=== PATIENT | female | born 1950 | race Caucasian/White ===

== ENCOUNTER 2017-12-06 12:57 | Inpatient (IN) ==
[2017-12-06] MEDS ORDERED: *HR* Ticagrelor 90 MG TABLET ONE (13:02)
[2017-12-06] MEDS ORDERED: 0.9 % Sodium Chloride 1,000 ML ONE ×4 (13:03→14:10)
[2017-12-06] MEDS ORDERED: Aspirin 325 MG TABLET PO ONE (13:03)
[2017-12-06] MEDS ORDERED: *HR* Heparin 10,000 UNIT/10 ML VIAL ONE (13:03)
[2017-12-06] MEDS ORDERED: Aspirin 81 MG TAB.CHEW ONE ×2 (13:03→14:14)
[2017-12-06] MEDS ORDERED: *HR* Heparin 5,000 UNIT/ML VIAL ONE (13:03)
[2017-12-06] MEDS ORDERED: ISOVUE-370 200 ML INFUS..BTL IV ONE (13:03)
[2017-12-06] MEDS ORDERED: Heparin 1,000 UNITS/500 mL 500 ML ONE (13:03)
[2017-12-06] MEDS ORDERED: Nitroglycerin 1,000 MCG/10 ML VIAL IV ONE (13:04)
[2017-12-06] MEDS ORDERED: *HR* Ticagrelor 90 MG TABLET PO ONE ×2 (13:08→18:00)
[2017-12-06] MEDS ORDERED: Aspirin 81 MG TAB.CHEW PO STA (13:09)
[2017-12-06] MEDS ORDERED: *HR* Heparin 5,000 UNIT/ML VIAL IVP ONE (13:10)
[2017-12-06] MEDS ORDERED: *HR* Heparin 5,000 UNIT/ML VIAL IVP PRN ×2 (13:10)
[2017-12-06] MEDS ORDERED: Heparin 25,000 UNIT/500 ML D5W 25,000 UNIT/500 ML BAG IVC SCH (13:15)
[2017-12-06] MEDS ORDERED: Ondansetron 4 MG/2 ML VIAL ONE (13:20)
[2017-12-06] MEDS ORDERED: *HR* EPINEPHrine 1 MG/ML AMPUL ONE (13:20)
[2017-12-06] MEDS ORDERED: 0.9 % Sodium Chloride 250 ML ONE (13:20)
--- NOTE | 2017-12-06 13:28 | Emergency Department Note ---
Disposition Clinical Impression: STEMI (ST elevation myocardial infarction) Qualifiers: Involved coronary artery: unspecified coronary artery Qualified Code(s): I21.3 - ST elevation (STEMI) myocardial infarction of unspecified site Disposition: Admitted As Inpatient Condition: Critical Chest Pain HPI - General Chief Complaint: ED Chest Pain Stated Complaint: AFIB Time Seen by Provider: 12/06/17 12:59 Source: family Limitations: no limitations Vital Signs Reviewed: Yes Nursing Notes Reviewed: Yes - History of Present Illness HPI Narrative: Patient presents to the emergency department for evaluation of chest pain. Chest pain started prior to arrival. Called squad. Brought in by EMS. EMS arrived with concern for EKG changes. Poor baseline and transmitted EKG. Upon arrival the patient has bradycardia in the mid 50s. Systolic blood pressure of 70. Patient complaining of 10 out of 10 chest pain feels like prior [place]. Last stent placement was 2013. Patient has a history of hypertension as well as smoking. She states she has mild COPD. Not requiring home oxygen. Patient's history is otherwise limited secondary to her pain, discomfort, severity of disease. EKG at bedside shows ST elevations in leads 3 and aVF. Depressions in 1 and aVL. Right-sided EKG shows continuation of elevations throughout the right- sided precordial leads. Upon initial EKG evaluation a STEMI alert was called. Court Magistrate is in house and is on the way to take the patient. Dr. Pelayo did call and I discussed the case with him. Agrees with aspirin, George, heparin, dopamine. After further evaluation of the patient within the child day for systolic blood pressure dropped to systolic 60. 2 L of fluids have been given. Epinephrine will be started if patient does not respond to dopamine increased to 20. Catheter team is at bedside. Patient has responded to fluid boluses as well as dopamine. Systolic blood pressure greater than 902 readings. Patient is been taken to Court Magistrate for further evaluation and management Severity scale (1-10): 10 - Related Data Allergies Allergy/AdvReac Type Severity Reaction Status Date / Time Penicillins AdvReac Hives Verified 03/10/16 10:11 Sulfa (Sulfonamide AdvReac Hives Verified 03/10/16 10:11 Antibiotics) Review of Systems: As Per HPI Limitations: ROS unobtainable due to patients medical condition Constitutional: Reports: other (Diaphoresis). Denies: fever, chills Cardiovascular: Reports: chest pain Respiratory: Reports: dyspnea Gastrointestinal: Reports: nausea, vomiting. Denies: abdominal pain Chest Pain PMH - Past Medical History Medical history: Reports: COPD Psychiatric history: Reports: no psych history - Social History Smoking Status: Current every day smoker Alcohol use: Reports: none Drug use: Reports: none Physical Exam - General Limitations: other (Limitations secondary to distress from chest pain and diaphoresis) General appearance: alert, lethargic - Head Head exam: atraumatic, normocephalic - Eye Eye exam: Present: normal appearance - ENT ENT exam: normal exam, normal oropharynx - Neck Neck exam: Present: normal inspection - Chest Chest inspection: Present: normal inspection, symmetric chest wall rise - Respiratory Respiratory exam: Present: normal lung sounds bilaterally, respiratory distress (Mild) - Cardiovascular Cardiovascular exam: Present: normal rhythm, bradycardia - Abdominal Exam Abdominal exam: Present: soft, Non-Tender - Extremities Exam Extremities exam: Present: normal inspection. Absent: tenderness - Neurological Exam Neurological exam: Present: alert, oriented X3 - Psychiatric Psychiatric exam: Present: anxious - Skin Skin exam: Present: warm, dry Course - Consultations Consultation #1: Discussed with Dr. Pelayo. Please see history of present illness for further details of this discussion. Patient accepted for catheter lab intervention. Vital Signs Temperature 97.8 F 12/06/17 13:00 Pulse Rate 51 12/06/17 13:00 Respiratory Rate 31 12/06/17 13:00 Blood Pressure 89/59 12/06/17 13:00 O2 Sat by Pulse Oximetry 94 12/06/17 13:00 Temperature 97.8 F 12/06/17 13:00 Pulse Rate 72 12/06/17 13:20 Respiratory Rate 15 12/06/17 13:22 Blood Pressure 103/60 12/06/17 13:22 O2 Sat by Pulse Oximetry 92 12/06/17 13:20 Oxygen Delivery Oxygen Delivery Room Air Chest Pain - Lab Data Result diagrams: 12/06/17 13:03 Lab Results 12/06/17 Range/Units 13:03 WBC 15.3 H (4.3-11.1) K/mcL RBC 4.53 (3.82-4.97) M/mcL Hgb 14.2 (11.5-15.4) g/dL Hct 42.5 (35.3-44.9) % MCV 93.8 (83.0-100.0) fL MCH 31.3 (28.0-33.3) pg MCHC 33.4 (31.6-35.5) g/dL RDW 13.6 (11.5-14.5) % Plt Count 282 (140-400) K/mcL MPV 10.4 (9.4-12.4) fL Immature Gran % 0.5 (0-4) % Seg Neutrophils % 61.0 % Lymphocytes % 27.7 % Monocytes % 8.3 % Eosinophils % 2.2 % Basophils % 0.3 % Neutrophils # 9.3 H (1.6-8.9) K/mcL Lymphocytes # 4.2 (0.6-4.6) K/mcL Monocytes # 1.3 (0.0-1.3) K/mcL Eosinophils # 0.3 (0.0-0.6) K/mcL Basophils # 0.1 (0.0-0.2) K/mcL
[2017-12-06 13:31] LABS: Basophils # 0.1 K/mcL (0.0-0.2); Basophils % 0.3 %; Eosinophils # 0.3 K/mcL (0.0-0.6); Eosinophils % 2.2 %; Hematocrit 42.5 % (35.3-44.9); Hemoglobin 14.2 g/dL (11.5-15.4); Immature Granulocytes % 0.5 % (0-4); Lymphocytes # 4.2 K/mcL (0.6-4.6); Lymphocytes % 27.7 %; Mean Corpuscular HGB Conc 33.4 g/dL (31.6-35.5); Mean Corpuscular Hemoglobin 31.3 pg (28.0-33.3); Mean Corpuscular Volume 93.8 fL (83.0-100.0); Mean Platelet Volume 10.4 fL (9.4-12.4); Monocytes # 1.3 K/mcL (0.0-1.3); Monocytes % 8.3 %; Neutrophils # 9.3 K/mcL (1.6-8.9); Platelet Count 282 K/mcL (140-400); Red Blood Count 4.53 M/mcL (3.82-4.97); Red Cell Distribution Width 13.6 % (11.5-14.5)
[2017-12-06] MEDS ORDERED: Ondansetron 4 MG/2 ML VIAL IVP PRN (13:31)
--- NOTE | 2017-12-06 13:31 | Pre-Sedation Evaluation ---
Pre-sedation evaluation - Pre-sedation checklist Date of procedure: 12/06/17 Procedure: [facility] Recent Vitals: Last Vital Signs Temp 97.8 F 12/06/17 13:00 Pulse 72 12/06/17 13:20 Resp 15 12/06/17 13:22 BP 103/60 12/06/17 13:22 Pulse Ox 92 12/06/17 13:20 H&P (including ROS) documented in medical record: Yes Previous reaction to sedatives/anesthetics: No Dietary Status: unknown Airway Assessment: Patient can open mouth completely, TMJ function normal ASA Classification *see protocol: CLASS II-Mild systemic disease, E-EMERGENCY- Add to any of the above to indicate emergent Plan of Care: Pt appropriate candidate for procedure/moderate/conscious sedation , Risks/benefits of procedure/sedation discussed w/ patient/family, If not NPO; Risk of intake outweiged by necessity to perform procedure Cardiac Registry (Cardio Only) - Functional Capacity Functional Capacity: Unknown - Clincal Frailty Scale Clinical Frailty Scale: Managing Well
[2017-12-06] MEDS ORDERED: *HR* FentaNYL (PF) 100 MCG/2 ML VIAL ONE (13:39)
[2017-12-06] MEDS ORDERED: *HR* Midazolam HCl 2 MG/2 ML VIAL ONE ×2 (13:39→13:51)
[2017-12-06 13:40] LABS: Heparin anti-factor XA UFH 0.04 IU/mL (0.30-0.70); INR 1.1; Prothrombin Time 11.9 Seconds (9.4-12.1)
[2017-12-06 13:42] LABS: Activated Partial Thrombo Time 24.2 Seconds (26.0-36.0)
[2017-12-06] MEDS ORDERED: Tirofiban 12.5 MG/250ML 12.5 MG/250 ML BAG IVC SCH (13:45)
[2017-12-06 13:52] LABS: BUN/Creatinine Ratio 30 (6-26); Blood Urea Nitrogen 31 mg/dL (8-23); Calcium 7.6 mg/dL (8.6-10.3); Carbon Dioxide 26 mEq/L (23-29); Chloride 112 mEq/L (98-107); Glucose 148 mg/dL (70-105); Osmolality,Calculated 305 (280-300); Potassium 3.5 mEq/L (3.5-5.1); Sodium 143 mEq/L (136-145); Troponin I < 0.03 ng/mL (< 0.04); eGFR For Non-African Americans 52 (> 60)
--- NOTE | 2017-12-06 14:55 | Invasive Diagnostic Lab Proc ---
Name: Iwona Bee Date of Study: 12/06/2017 Date: 1950 Ht: 63.0in Medical Record#: [id number] Age: 67 Wt: 138.89lb Gender: Female BSA: 1.66 Order #: [id number] BMI: 24.61 Physicians Procedure Physician: Hunter Pelayo MD, [facility] Referring MD: Referring MD: Staff Name Position Time In Beau Calhoun RN Slime Plant Operator 01:19 PM Jessi Dao RT (R) Scrub 01:19 PM Francisco Hinds RT (R) Monitor 01:19 PM Indications Indication STEMI Procedures Performed Procedure PRQ CARD REVASC MT 1 VSL Pre-Procedure Checklist Informed consent is complete signed and on chart. H&P is on chart. ID band is on and ID verified with patient. Patient NPO for procedure The procedure was described for the patient and questions were answered. Blood Pressure: 103/60 ECG is on chart. Rhythm: NSR w/ST elevation Plan of Care Patient will tolerate the procedure without complications. Adequate level of comfort will be maintained. Hemodynamics will remain stable Patient will recover from procedure without complications. Respiratory function will be maintained. Cardiac rhythm will remain stable. Patient temperature will be maintained. Patient and/or family have verbalized understanding of the procedure. Patient Education Chief Complaint/Reason for Test: Cardiac Cath Developmental Category: Geriatric (65+ years) Developmentally Appropriate for Age: Yes Learning Barriers: None Education Needs: Procedure Education Method: Verbal Information Taught: Cardiac Cath Educational Evaluation: Unable to retain information. Needs further instruction Intravenous Access Time IV Size Location DC'd Fluid/Drip Rate Units RN 01:27 PM 18g 1 1/4" Patent On Arrival Lt Antecubital 0.9NaCl 25 ml/hr Beau Calhoun RN 01:27 PM 20g 1 1/4" Patent On Arrival Rt Antecubital Allergies Penicillins Sulfa (Sulfonamide Antibiotics) PCN SULFA (sulfonamide) Vital Signs Time BP (mmHg) HR (bpm) O2 Sat. RR (bpm) LOC 01:26 PM 103 / 60 72 92 % 15 4 = Oriented but drowsy 01:26 PM / % 4 = Oriented but drowsy 01:32 PM 152 / 73 81 91 % 12 01:37 PM 121 / 65 78 97 % 22 01:42 PM 129 / 72 81 100 % 21 01:48 PM 179 / 96 107 97 % 15 01:52 PM 83 / 54 100 98 % 17 01:53 PM 131 / 76 127 97 % 15 01:58 PM 142 / 86 96 99 % 22 02:03 PM 148 / 70 105 98 % 18 02:08 PM 120 / 64 102 100 % 15 02:13 PM 103 / 56 104 98 % 15 02:19 PM 100 / 44 91 97 % 16 02:23 PM 99 / 59 90 100 % 16 Procedural Medications Time Medication Dose Units Method Given By 01:32 PM Oxygen 6 L/min nasal cannula Beau Calhoun RN 01:37 PM Dopamine 20 ml/hr Intravenous 01:38 PM Lidocaine 2% 13 ml Subcutaneous Hunter Pelayo MD, FACC 01:43 PM Versed 2 mg Intravenous Beau Calhoun RN 01:43 PM Fentanyl 25 mcg Intravenous Beau Calhoun RN 01:44 PM Aggrastat Bolus: 33 ml Intravenous Beau Calhoun RN 01:45 PM Aggrastat 12.5mg/250ml 12 ml Intravenous Beau Calhoun RN 01:52 PM Versed 1 mg Intravenous Beau Calhoun RN 01:52 PM Fentanyl 25 mcg Intravenous Beau Calhoun RN 01:58 PM Dopamine 15 mg Intravenous Beau Calhoun RN 02:02 PM Dopamine 10 mg/kg/min Intravenous Beau Calhoun RN 02:06 PM Dopamine 5 mg/kg/min Intravenous Beau Calhoun RN 02:09 PM Nitroglycerin 200 mcg Intracoronary Hunter Pelayo MD 02:22 PM Aspirin (325mg) 81 mg Orally Beau Calhoun RN ASA Classification: CLASS IV- Severe systemic that is constant threat to patient's life Hugo Score Preprocedure Postprocedure Activity 1- Moves 2 extremities sustained head lift Activity 2- Moves 4 extremities sustained head lift Circulation 2- SBP +/= 20 points of pre-anesthetic level Circulation 2- SBP +/= 20 points of pre-anesthetic level Consciousness 1- Responds to verbal stimuli drowsy Consciousness 2- Awake and alert oriented x 3 O2 Saturation 1- Needs O2 inhalation to maintain O2 saturation of 90% O2 Saturation 2- Able to maintain O2 satruation of 92% on room air Respiratory 1- Labored or limited respiration requires airway Respiratory 2- Able to deep breathe and cough well Total Score 6 Total Score 10 Contrast Agent: Isovue Diagnostic Contrast: 107 ml Total Contrast: 107 ml Fluoro Dose: 3054 mGy Activated Clotting Time Time Seconds to Clot 02:22 PM 241 Procedure Log Time Note Enter By 01:18 PM CathStat 01:19 PM Patient charges- Angio tray pack, Navilyst 3mm J, Pulse Oximetry and ACIST tubing and transducer tsites : PM Beau Calhoun RN Position: Slime Plant Operator Time in: 13: tsites 01:19 PM Jessi Dao RT (R) Position: Scrub Time in: : tsites : PM Francisco Hinds RT (R) Position: Monitor Time in: : tsites :24 PM Case Delayed No tsites :24 PM Clinical Presentation: STEMI or equivalent tsites : PM ASA Class CLASS IV- Severe systemic that is constant threat to patient's life tsites : PM Physician arrived : tsites : PM Pt arrived to field laboratory operator 2 at 13:26 tsites : PM Time: 13: Patient comfortable and pain free: Yes tsites : PM Patient arrived at 13:26 with Dopamine Intravenous drip @ 20 ml/hr [email or web address] : PM Time: 13:26LOC: 4 = Oriented but drowsy tsites : PM Meet and greet completed tsites : PM Sign in performed according to hospital policy. tsites 01:27 PM Procedure start 13:26 tsites :31 PM Vitals capture started with the following parameters, Patient=Adult, Interval=5 min, Initial Eqhjyiah=173 mmHg, Deflation Rate=5 mmHg, Cuff placed on Right Arm 01:32 PM Time: 13:32 Oxygen on at 6 L/min per nasal cannula by Beau Calhoun RN tsites 01:32 PM Hair removed from procedure site in holding area using clippers. Bilateral groin prepped with Chloraprep by Jessi Dao RT (R), then patient was draped. Skin intact. tsites 01:32 PM patient arrived on a dopamine drip at 20 tsites 01:32 PM HR=81 bpm, UTVZ=884/73 mmhg, SpO2=91.0 %, Resp=12 B/min 01:34 PM Recorded ECG: HR=81 Condition=Condition 1 01:37 PM Time out performed according to hospital policy [email or web address] :37 PM Time: 13:37 13 ml Lidocaine 2% to right groin Subcutaneous Given by Hunter Pelayo MD, [facility] [email or web address] 01:37 PM HR=78 bpm, SADA=922/65 mmhg, SpO2=97.0 %, Resp=22 B/min 01:38 PM Access obtained by percutaneous puncture. 6Fr 10cm Terumo Alda sheath placed in right Femoral artery. [id number] [email or web address] 01:38 PM 0.035 145cm Navilyst 3mmJ wire [id number] [email or web address] :38 PM Inflation device was opened. [email or web address] 01:38 PM 6Fr JR 4 [place] Bright-Tip guide catheter was used to cannulate the PCI vessel successfully. reused? No [email or web address] 01:41 PM Recorded Pressure: Ao, HR=81, Condition=Condition 1 (Aorta) Ao 64/33/42 01:41 PM .014 Jud 190cm guide wire across target lesion- successful. reused? No [email or web address] 01:41 PM 2.25 mm x 15 mm Emerge Monorail balloon across target lesion- successful. reused? No [email or web address] :42 PM Coronary Dominance: right [email or web address] 01:42 PM Lesion found in Proximal RCA. Pre Stenosis: 100 Pre SIL Flow: [email or web address] 01:42 PM HR=81 bpm, PJEJ=279/72 mmhg, WdI8=088.0 %, Resp=21 B/min 01:42 PM Right Coronary, Right Posterior Descending Arteries with Right Posterolateral and Acute Marginal branches with 100 % stenosis. If graft is supplying this area, 0 % stenosis [email or web address] 01:42 PM Balloon inflated @ 8 sheree for 10 seconds [email or web address] 01:43 PM Balloon inflated @ 8 sheree for 10 seconds [email or web address] 01:43 PM Balloon inflated @ 8 sheree for 10 seconds [email or web address] :43 PM Time: 13:43 Versed 2 mg Intravenous Given by Beau Calhoun RN [email or web address] 01:44 PM Time: 13:43 Fentanyl 25 mcg Intravenous Given by Beau Calhoun RN [email or web address] :44 PM Balloon catheter removed intact. [email or web address] :44 PM Time: 13:44 Aggrastat Bolus: 33 ml Intravenous Given by Beau Calhoun RN Beck pump [email or web address] 01:45 PM Time: 13:45 Aggrastat 12.5mg/250ml 12 ml Intravenous Given by Beau Calhoun RN Beck pump [email or web address] 01:45 PM Recorded Pressure: Ao, HR=87, Condition=Condition 1 (Aorta) Ao 152/80/111 01:47 PM 3.5mm x 38mm Synergy drug-eluting stent across target lesion- successful Lot #[id number] [email or web address] 01:48 PM UE=045 bpm, JPCO=576/96 mmhg, SpO2=97.0 %, Resp=15 B/min 01:48 PM Stent deployed @ 11 sheree for 10 seconds [email or web address] 01:49 PM Stent delivery system removed intact. [email or web address] 01:51 PM 3.25 mm x 20mm NC Trek Rx balloon across target lesion- successful. reused? No [email or web address] 01:51 PM patient consistantly moving legs. [email or web address] 01:52 PM Time: 13:52 Versed 1 mg Intravenous Given by Beau Calhoun RN 01:52 PM Time: 13:52 Fentanyl 25 mcg Intravenous Given by Beau Calhoun RN 01:52 PM TM=732 bpm, NIBP=83/54 mmhg, SpO2=98.0 %, Resp=17 B/min 01:52 PM Vitals capture stopped. 01:52 PM Vitals capture started with the following parameters, Patient=Adult, Interval=5 min, Initial Ytavkrsc=855 mmHg, Deflation Rate=5 mmHg, Cuff placed on Right Arm 01:53 PM Balloon inflated @ 14 sheree for 11 seconds [email or web address] 01:53 PM BQ=831 bpm, UKBH=891/76 mmhg, SpO2=97.0 %, Resp=15 B/min 01:54 PM Balloon inflated @ 14 sheree for 10 seconds [email or web address] 01:54 PM Recorded Pressure: Ao, HR=49, Condition=Condition 1 (Aorta) Ao 82/55/68 01:55 PM Recorded Pressure: Ao, HR=96, Condition=Condition 1 (Aorta) Ao 141/98/119 01:56 PM Balloon inflated @ 14 sheree for 15 seconds [email or web address] 01:56 PM Balloon catheter removed intact. [email or web address] 01:57 PM 3.5mm x 20mm Synergy drug-eluting stent across target lesion- successful Lot #[id number] [email or web address] 01:58 PM HR=96 bpm, IELY=585/86 mmhg, SpO2=99.0 %, Resp=22 B/min 01:59 PM Time: 13:58 Dopamine dropped to15 mg/kg/min Intravenous Given by Beau Calhoun RN Beck pump [email or web address] 02:01 PM Balloon inflated @ 14 sheree for 18 seconds [email or web address] 02:01 PM patient consitantly moving legs. [email or web address] 02:02 PM Stent delivery system removed intact. [email or web address] 02:02 PM Time: 14:02 Dopamine dropped to 10 mg/kg/min Intravenous Given by Beau Calhoun RN Beck pump [email or web address] 02:03 PM VC=290 bpm, LMVT=792/70 mmhg, SpO2=98.0 %, Resp=18 B/min 02:04 PM 3.25 x 20 NC Ulices advanced [email or web address] 02:05 PM Balloon inflated @ 18 sheree for 16 seconds [email or web address] 02:05 PM Balloon catheter removed intact. [email or web address] 02:06 PM 3.5 mm x 12mm NC Trek Rx balloon across target lesion- successful. reused? No [email or web address] 02:06 PM Time: 14:06 Dopamine dropped to 5 mg/kg/min Intravenous Given by Beau Calhoun RN Beck pump [email or web address] 02:07 PM Balloon inflated @ 16 sheree for 20 seconds [email or web address] 02:08 PM Balloon inflated @ 20 sheree for 10 seconds [email or web address] 02:08 PM WH=058 bpm, PXLI=634/64 mmhg, FbK1=270.0 %, Resp=15 B/min 02:08 PM Balloon inflated @ 25 sheree for 30 seconds [email or web address] 02:09 PM Balloon catheter removed intact. [email or web address] 02:09 PM Time: 14:09 Nitroglycerin 200 mcg Intracoronary Given by Hunter Pelayo MD [email or web address] 02:10 PM Guide wire removed intact. [email or web address] 02:10 PM Guide catheter removed intact. [email or web address] 02:11 PM 5Fr FL 4 catheter inserted over the wire [facility] 2 02:12 PM LCA angiography performed in multiple views. [email or web address] 02:12 PM Recorded Pressure: Ao, NC=449, Condition=Condition 1 (Aorta) Ao 102/75/88 02:13 PM LU=140 bpm, KZOX=670/56 mmhg, SpO2=98.0 %, Resp=15 B/min 02:13 PM Lesion found in Mid LAD. Pre Stenosis: 60 Pre SIL Flow: [email or web address] 02:13 PM Mid/Distal Left Anterior Descending Coronary Artery and diagonal branches with 60% stenosis. If graft is supplying this area, 0 % stenosis [email or web address] 02:14 PM Catheter removed [email or web address] 02:14 PM Lesion found in Proximal LAD. Pre Stenosis: 30 Pre SIL Flow: [email or web address] 02:14 PM Proximal Left Anterior Descending Coronary Artery with 30% stenosis. If graft is supplying this territory, 0 % stenosis. bw 02:14 PM 5Fr Pigtail catheter inserted over the wire [facility] [email or web address] 02:14 PM Lesion found in Mid Circumflex. Pre Stenosis: 50 Pre SIL Flow: [email or web address] 02:14 PM Circumflex, Obtuse Marginal, Left Posterior Descending, and Left Posterolateral Coronary Arteries with 50 % stenosis. If graft is supplying this area, 0 % stenosis [email or web address] 02:15 PM Catheter selectively placed in left ventricle [email or web address] 02:15 PM Bolus angiogram of left Ventricle complete: 10 ml/sec for a total of 30 mls bw 02:15 PM Pressure channel 1 zeroed. 02:15 PM Recorded Pressure: LV, HR=99, Condition=Condition 1 (Left Ventricle) LV 106/15/16 02:16 PM Recorded Pressure: LV, Ao, HR=97, Condition=Condition 1 (Left Ventricle) LV 86/86/77, (Aorta) Ao 108/18/54 02:16 PM Bolus angiogram of right Femoral complete: 4 ml/sec for a total of 7 mls [email or web address] 02:17 PM Procedure completed at 14:17 12/06/2017 bw 02:18 PM Sign out completed: Radiation Dose 577.84 mGy, 3054.08 cGy/cm2 Fluoro Time: 12.4 Isovue 370 - 200ml contrast 107 ml given by Hunter Pelayo MD, [facility]. Complications: NoneCardiac Rehab Consult needed: YesConfirmed administered medications: Yes bw 02:18 PM Isovue 370 - 200ml,1 Bottle(s) used. bw 02:18 PM Sheath left in place to be pulled on floor/holding areaV+Pad bw 02:18 PM drawing ACT 02:19 PM HR=91 bpm, APHX=096/44 mmhg, SpO2=97.0 %, Resp=16 B/min 02:21 PM Estimated Blood Loss: less than 20cc bw 02:21 PM Post ECG NSR [email or web address] 02:21 PM Post Blood Pressure 100/44 [email or web address] 02:21 PM 14:21 Post Pulses Bilateral DP & PT 1+ [email or web address] 02:21 PM Information taught Cardiac Cath and PCI [email or web address] 02:21 PM Education needs Procedure, Plan of Care, and Disease Process [email or web address] 02:22 PM At 14:22 the ACT was 241 seconds. [email or web address] 02:22 PM Family placed in consult room. [email or web address] 02:22 PM Learning barriers :Sedated [email or web address] 02:22 PM Education Methods Verbal [email or web address] 02:22 PM Education evaluation Needs further instruction [email or web address] 02:22 PM Site status No bleeding/hematoma - Rt Groin as reported by Sites, Jessi RT (R) at 14:22 [email or web address] 02:22 PM Opsite applied [email or web address] 02:22 PM Delay to floor No [email or web address] 02:22 PM Complications: None 02:23 PM Time: 14:22 Aspirin (325mg) 81 mg Orally Given by Beau Calhoun RN [email or web address] 02:23 PM HR=90 bpm, NIBP=99/59 mmhg, FyM5=560.0 %, Resp=16 B/min 02:34 PM Patient out of room: 14:34 [email or web address] 02:46 PM Report given to manuel [email or web address] Pt taken to ICU Room #7. 14:46 [email or web address] Complications Complication None None Hemodynamics Pressures Site Systolic/A Wave Diastolic/V Wave Mean AO 64 33 42 AO 152 80 111 AO 82 55 68 AO 141 98 119 AO 102 75 88 LV 106 15 16 LV 86 86 77 AO 108 18 54 Post Procedure Information Blood Pressure: 100/44 mmHg Rhythm: NSR Post procedural instructions were given Site Checks Time Location Status Staff Sheath In? Note 02:22 PM Rt Groin No bleeding/hematoma Sites, Jessi RT (R) Pulses Time Site Pre-Procedure Post-Procedure Note 12/06/2017 1:27:00 PM Bilateral DP & PT 1+ 2:21:00 PM Bilateral DP & PT 1+ Updated by Francisco MartinR) on 12/06/2017 2:46:39 PM RT Elda electronically signed on 12/06/2017 2:47:17 PM with status of Final
[2017-12-06] MEDS ORDERED: *HR* Atropine Sulfate 1 MG/10 ML SYRINGE ONE (17:27)
[2017-12-06] MEDS: *HR* Ticagrelor 90 MG TABLET PO SCH (19:19)
[2017-12-06] MEDS ORDERED: Ipratropium/Albuterol Neb 3 ML IH PRN (20:07)
[2017-12-06] MEDS ORDERED: Nitroglycerin 0.4 MG TAB.SUBL SL PRN (20:07)
--- NOTE | 2017-12-06 20:09 | Cardiology History & Physical ---
Date of Encounter: 12/06/17 Time of Encounter: 13:00 Assessment and Plan (1) STEMI (ST elevation myocardial infarction) Current Visit: Yes Status: Acute A/R/B of C discusse dwith her including risk of /CVA/CABG/ASHLEY/bleeding. Pt aware and agreeable with proceeding. DAPT given, dopamine started for cardiogenic shock. EF assessment, cardiac rehab. High intensity statin. Total critical care time: 1.5 hour The assessment and plan as outlined above was discussed with the patient and/or family members who expressed understanding and agreement. All questions were answered. Qualifiers: Involved coronary artery: right coronary artery Qualified Code(s): I21.11 - ST elevation (STEMI) myocardial infarction involving right coronary artery (2) Dyslipidemia Current Visit: Yes Status: Acute The assessment and plan as outlined above was discussed with the patient and/or family members who expressed understanding and agreement. All questions were answered. (3) CAD (coronary artery disease) Current Visit: Yes Status: Acute The assessment and plan as outlined above was discussed with the patient and/or family members who expressed understanding and agreement. All questions were answered. Qualifiers: Coronary Disease-Associated Artery/Lesion type: [place] artery [place] vs. transplanted heart: [place] heart Associated angina: with unstable angina Qualified Code(s): I25.110 - Atherosclerotic heart disease of [place] coronary artery with unstable angina pectoris History of Present Illness Chief complaint: chest pain HPI: Ms. Bee is a 67 year old female with history of CAD sp 2013 STEMI sp PCI ALEXUS presents with severe 10/10 chest pain similar to her previous angina with her CA. It was associated with nausea and vomiting. She was found to have inferior STEMI in ED with bradycardia and hypotension started on dopamine. She was given brilinta but had vomiting soon thereafter . Past Med Surg Social Fam HX - Past Medical History Medical history: COPD, coronary artery disease, myocardial infarction Additional medical history: CA 2013 with stent to RCA, STEMI 12/06/17-stent to RCA x2 Psychiatric history: no psych history - Past Surgical History Surgical History: no surgical history - Social History Smoking Status: Current every day smoker Packs per day: 1 Smokeless Tobacco Status: No Alcohol use: none Drug use: none - Additional Family History Additional family history: unable to obtain, emergent procedure and patient in extremis Medications and Allergies Albuterol Sulfate [Ventolin Hfa] 2 puff IH Q4H PRN 12/06/17 [History] Aspirin Enteric Coated [Aspirin EC] 81 mg PO DAILY 12/06/17 [History] Atorvastatin Calcium 80 mg PO DAILY 12/06/17 [History] Calcium Carbonate [Calcium] 600 mg PO BID 12/06/17 [History] Cholecalciferol (Vitamin D3) [Vitamin D] 2,000 unit PO DAILY 12/06/17 [History] Clopidogrel [Plavix] 75 mg PO DAILY 12/06/17 [History] Ipratropium/Albuterol Neb [Duoneb] 3 ml IH Q4-6H PRN 12/06/17 [History] Metoprolol [Lopressor] 12.5 mg PO BID 12/06/17 [History] Nitroglycerin [Nitrostat] 0.4 mg SL AD PRN 12/06/17 [History] Pantoprazole Sodium [Protonix] 40 mg PO DAILY 12/06/17 [History] 3 Allergy/AdvReac Type Severity Reaction Status Date / Time Penicillins AdvReac Hives Verified 03/10/16 10:11 Sulfa (Sulfonamide AdvReac Hives Verified 03/10/16 10:11 Antibiotics) All Systems Review: The remainder of the systems were reviewed and are negative - Constitutional Constitutional: no chills, no fever(s) - EENT Eyes: no blurred vision, no loss of vision Nose, mouth and throat: no mouth pain, no odynophagia - Cardiovascular Cardiovascular: chest pain at rest, chest pain with exertion - Respiratory Respiratory: dyspnea, no hemoptysis, no wheezing - Gastrointestinal Gastrointestinal: no hematemesis, no hematochezia - Genitourinary Genitourinary: no dysuria, no hematuria - Musculoskeletal Musculoskeletal: no muscle cramps, no muscle weakness - Integumentary Integumentary: no rash, no unusual bruising - Neurological Neurological: no syncope, no tingling - Psychiatric Psychiatric: no hallucinations, no panic attacks - Hematological/Lymphatic Hematologic/Lymphatic: no easy bleeding, no easy bruising Physical Examination Vital Signs, Last 4 Hours Temp Pulse Pulse Resp BP Pulse Ox 12/06/17 19:54 98.6 F 12/06/17 19:31 69 12/06/17 19:00 69 16 115/71 97 12/06/17 18:12 76 12/06/17 17:42 71 12/06/17 17:20 76 12/06/17 17:00 97.8 F 67 16 105/50 97 12/06/17 16:30 69 67 17 109/60 97 General: Conversant, Other (severe distress) HEENT: Atraumatic, Normocephaly Neck: No JVD Cardiac: Reg Rate and Rhythm Lungs: Normal Breath Sounds Neuro: Alert and responsive, No focal deficits noted Abdomen: Soft, Non-Tender Skin: No rashes noted on visualized skin Musculoskeletal: No Chest Wall Tenderness Extremities: No Edema Results 12/06/17 13:03 12/06/17 13:03 - EKG Interpretation EKG results cardiology: personally reviewed, sinus rhythm (inferior current of injury)
[2017-12-07 03:41] LABS: Basophils % 0.1 %; Eosinophils # 0.1 K/mcL (0.0-0.6); Hematocrit 40.3 % (35.3-44.9); Hemoglobin 13.3 g/dL (11.5-15.4); Immature Granulocytes % 0.6 % (0-4); Lymphocytes # 1.5 K/mcL (0.6-4.6); Lymphocytes % 10.1 %; Mean Corpuscular Volume 93.9 fL (83.0-100.0); Mean Platelet Volume 10.2 fL (9.4-12.4); Monocytes # 1.5 K/mcL (0.0-1.3); Monocytes % 10.4 %; Neutrophils # 11.1 K/mcL (1.6-8.9); Platelet Count 246 K/mcL (140-400); Red Blood Count 4.29 M/mcL (3.82-4.97); Segmented Neutrophils % 77.8 %
[2017-12-07 04:03] LABS: BUN/Creatinine Ratio 26 (6-26); Blood Urea Nitrogen 21 mg/dL (8-23); Carbon Dioxide 27 mEq/L (23-29); Chloride 111 mEq/L (98-107); Glucose 98 mg/dL (70-105); Osmolality,Calculated 295 (280-300); Potassium 3.5 mEq/L (3.5-5.1); Sodium 141 mEq/L (136-145); eGFR For Non-African Americans > 60 (> 60)
[2017-12-07] MEDS ORDERED: *HR* Enoxaparin 40 MG/0.4 ML SYRINGE SQ SCH (06:00)
[2017-12-07] MEDS ORDERED: Aspirin 81 MG TAB.CHEW PO SCH (09:00)
[2017-12-07] MEDS ORDERED: Cholecalciferol (D-3) 1,000 UNIT TABLET PO SCH (09:00)
[2017-12-07] MEDS: *HR* Ticagrelor 90 MG TABLET PO SCH ×2 (09:11→21:22)
--- NOTE | 2017-12-07 10:51 | Cardiology Progress Note ---
Date of Encounter: 12/07/17 Time of Encounter: 09:30 Assessment and Plan (1) STEMI (ST elevation myocardial infarction) Current Visit: Yes Status: Acute Per cardiology: -Admitted as acute inferior STEMI -S/p [facility] yesterday with 30% proximal LAD, 60% mid LAD, 50% mid circumflex, 80- 100% ostial RCA with 2 ALEXUS placed. -On asa, brilinta, statin, BB. Educated on dual anti-platelet therapy uninterrupted for at least one year, states understanding. -Denies chest pain. -Right groin access site without hematoma or ecchymosis. -TTE pending. -Vital signs stable. -Will continue to monitor. -TTE Qualifiers: Involved coronary artery: right coronary artery Qualified Code(s): I21.11 - ST elevation (STEMI) myocardial infarction involving right coronary artery (2) Tobacco abuse Current Visit: Yes Status: Chronic Per cardiology: -Known tobacco abuse. -States was smoking 0.5 ppd. -I stressed smoking cessation education with patient. Pateint states she promised family this time she will quit smoking. (3) Dyslipidemia Current Visit: Yes Status: Acute Per cardiology: -Continue statin. Discussion w patient/family: The assessment and plan as outlined above was discussed with the patient who expressed understanding and agreement. All questions were answered. Thank you for involving us in the care of your patient. Please call with any questions. Discussed and reviewed with . Subjective Principal diagnosis: STEMI Interval history: Patient denies chest pain. States she feels much better, Denies issues using right leg. Objective Vital Signs, Last 4 Hours Temp Pulse Resp BP Pulse Ox 12/07/17 09:00 71 12 129/69 93 12/07/17 08:00 85 12 137/83 93 12/07/17 07:00 98.6 F 68 12 118/69 93 General: Conversant, No Apparent Distress HEENT: Atraumatic, Normocephaly, Mucus Membranes Moist Neck: No JVD, Normal carotid pulses Cardiac: Reg Rate and Rhythm, Normal S1 and S2, No Murmur Lungs: Normal Breath Sounds, No Wheeze, Rales, Rhonchi Neuro: Alert and responsive, No focal deficits noted Abdomen: Soft, Non-Tender Skin: No rashes noted on visualized skin, Other (Right groin access site without ecchymosis or hematoma. ) Musculoskeletal: No Chest Wall Tenderness Extremities: No Clubbing, No Cyanosis, No Edema, Normal Pulses Results 12/07/17 03:12 12/07/17 03:12 Lab Results Active Medications Acetaminophen (Tylenol) 500 mg PO Q6H PRN PRN Reason: Mild Pain Stop: 06/07/18 13:32 Albuterol Sulfate (Albuterol Inhaler) 2 puff IH [id number] PRN PRN Reason: Shortness Of Breath Stop: 06/07/18 20:08 Albuterol/Ipratropium (Duoneb) 3 ml IH [id number] PRN PRN Reason: Shortness Of Breath Stop: 06/07/18 20:08 Aspirin (Aspirin) 81 mg PO DAILY [facility] Stop: 06/08/18 09:01 Last Admin: 12/07/17 09:10 Dose: 81 mg Calcium Carbonate (Tums) 500 mg PO BID [facility] Stop: 06/07/18 21:01 Last Admin: 12/07/17 09:10 Dose: 500 mg Enoxaparin Sodium (Lovenox) 40 mg SQ 0600 [facility]ACE[facility] PRN Reason: Protocol Stop: 06/08/18 06:01 Last Admin: 12/07/17 05:19 Dose: 40 mg Metoprolol Tartrate (Lopressor) 12.5 mg PO BID [facility] Stop: 06/07/18 21:01 Last Admin: 12/07/17 09:10 Dose: 12.5 mg Nitroglycerin (Nitroglycerin) 0.4 mg SL Q5MIN PRN PRN Reason: CHEST PAIN Stop: 06/07/18 20:08 Omeprazole (Prilosec) 20 mg PO DAILY [facility] Stop: 06/08/18 09:01 Last Admin: 12/07/17 09:10 Dose: 20 mg Ondansetron HCl (Zofran) 4 mg IVP Q8H PRN PRN Reason: Nausea And Vomiting Stop: 06/07/18 13:32 Rosuvastatin Calcium (Crestor) 40 mg PO HS [facility] Stop: 06/07/18 21:01 Last Admin: 12/06/17 19:19 Dose: 40 mg Ticagrelor (Brilinta) 90 mg PO BID [facility] Stop: 06/07/18 21:01 Last Admin: 12/07/17 09:11 Dose: 90 mg Vitamin D (Vitamin D) 1,000 unit PO DAILY [facility] Stop: 06/08/18 09:01 Last Admin: 12/07/17 09:10 Dose: 1,000 unit Laboratory Tests 12/07/17 12/07/17 03:12 03:12 Hgb 13.3 Creatinine 0.80 - Imaging and Cardiology Chest Xray: report reviewed Echo: pending Cardiac cath: report reviewed - EKG Interpretation EKG results cardiology: other (Telemetry reviewed with average HR previous 12 hours noted to be 70, SR. PVCs and PACs noted.) Consult Discharge Plan - Plan Referrals: Adam Walker MD [Primary Care Provider] -
[2017-12-07] MEDS ORDERED: Ondansetron 4 MG/2 ML VIAL IVP PRN (14:28)
[2017-12-07] MEDS ORDERED: Nitroglycerin 0.4 MG TAB.SUBL SL PRN (14:28)
[2017-12-07] MEDS ORDERED: Ipratropium/Albuterol Neb 3 ML IH PRN (14:28)
[2017-12-08] MEDS ORDERED: *HR* Enoxaparin 40 MG/0.4 ML SYRINGE SQ SCH (06:00)
[2017-12-08] MEDS: *HR* Ticagrelor 90 MG TABLET PO SCH (07:34)
--- NOTE | 2017-12-08 08:42 | Discharge Summary ---
Date of Encounter: 12/08/17 Time of Encounter: 08:30 - Discharge Diagnosis (1) STEMI (ST elevation myocardial infarction) Priority: Primary Status: Acute Comments: Admitted with acute STEMI s/p PCI. Qualifiers: Involved coronary artery: right coronary artery Qualified Code(s): I21.11 - ST elevation (STEMI) myocardial infarction involving right coronary artery (2) Tobacco abuse Priority: Secondary Status: Chronic Comments: Known tobacco abuse. States she is quitting smoking. (3) Dyslipidemia Priority: Secondary Status: Chronic Comments: Known HLD. ON statin. - Hospital Course Hospital course: Ms. Bee is a 67 year old female who was admitted with acute STEMI. 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 Has remaining mild- moderate CAD. Patient is on asa and brilinta. Educated on dual anti-platelet therapy uninterrupted for at least one year. States understanding. Brilinta assistance care given to patient. On statin and BB. LVEF 60%, mild diastolic dysfunction, no segmental wall motion abnormalities. Smoking cessation education provided. Vital signs stable. Right groin access site without ecchymosis or hematoma. Right groin site management education reviewed with patient. Patient is being prepped for discharge home in stable condition. Patient will follow up with [facility], follow up set. - Time Spent with Patient Total time spent providing and/or coordinating discharge services: Less than 30 minutes - Discharge Medications Prescriptions: Nitroglycerin [Nitrostat] 0.4 mg SL AD PRN #15 tab.subl PRN Reason: Chest Pain Rosuvastatin [Crestor] 40 mg PO HS #30 tablet Ticagrelor [Brilinta] 90 mg PO BID #60 tablet Home Medications: Albuterol Sulfate [Ventolin Hfa] 2 puff IH Q4H PRN 12/06/17 [History] Aspirin Enteric Coated [Aspirin EC] 81 mg PO DAILY 12/06/17 [History] Calcium Carbonate [Calcium] 600 mg PO BID 12/06/17 [History] Cholecalciferol (Vitamin D3) [Vitamin D3] 2,000 unit PO DAILY 12/06/17 [History] Ipratropium/Albuterol Neb [Duoneb] 3 ml IH Q4-6H PRN 12/06/17 [History] Metoprolol [Lopressor] 12.5 mg PO BID 12/06/17 [History] Pantoprazole Sodium [Protonix] 40 mg PO DAILY 12/06/17 [History] Nitroglycerin [Nitrostat] 0.4 mg SL AD PRN #15 tab.subl 12/08/17 [Rx] Rosuvastatin [Crestor] 40 mg PO HS #30 tablet 12/08/17 [Rx] Ticagrelor [Brilinta] 90 mg PO BID #60 tablet 12/08/17 [Rx] Allergies/Adverse Reactions: 3 Allergy/AdvReac Type Severity Reaction Status Date / Time Penicillins AdvReac Hives Verified 03/10/16 10:11 Sulfa (Sulfonamide AdvReac Hives Verified 03/10/16 10:11 Antibiotics) Date of admission: 12/06/17 13:48 Primary care physician: Adam Walker MD Discharging clinician: Vero Alejandro Anticipated date of discharge: 12/08/17 Physical Examination Vital Signs, Last 4 Hours Temp Pulse Resp 12/08/17 08:32 98.6 F 12/08/17 06:00 63 16 Vital Signs Temperature 97.8 F 12/06/17 13:00 Pulse Rate 51 12/06/17 13:00 Respiratory Rate 31 12/06/17 13:00 Blood Pressure 89/59 12/06/17 13:00 O2 Sat by Pulse Oximetry 94 12/06/17 13:00 Temperature 98.6 F 12/08/17 08:32 Pulse Rate 63 12/08/17 06:00 Respiratory Rate 16 12/08/17 06:00 Blood Pressure 108/52 12/08/17 04:00 O2 Sat by Pulse Oximetry 94 12/08/17 04:00 Oxygen Delivery Oxygen Delivery Room Air General: Conversant, No Apparent Distress HEENT: Atraumatic, Normocephaly, Mucus Membranes Moist Neck: No JVD, Normal carotid pulses Cardiac: Reg Rate and Rhythm, Normal S1 and S2, No Murmur Lungs: Normal Breath Sounds, No Wheeze, Rales, Rhonchi Neuro: Alert and responsive, No focal deficits noted Abdomen: Soft, Non-Tender Skin: No rashes noted on visualized skin, Other (Right groin access site without hematoma or ecchymosis. ) Musculoskeletal: No Chest Wall Tenderness Extremities: No Clubbing, No Cyanosis, No Edema, Normal Pulses - Patient Status Disposition: Home, Self-Care Condition: Good Functional capacity at discharge: independent ambulation Overall status at discharge: patient is progressing back to baseline - Discharge Instructions Follow Up With: Adam Walker MD [Primary Care Provider] - Additional Instructions: RISK FACTORS: STOP SMOKING: If you smoke, STOP. Smoking or tobacco use significantly increases your risk of heart disease because nicotine causes the arteries to narrow or constrict. It also causes fats to stick to the artery. Your chances of having a heart attack are greatly increased if you continue to smoke. For more information, call the education line for smoking cessation 6-277-GTOOEOC EAT A LOW FAT/CHOLESTEROL/SODIUM DIET: This diet may help reduce your chances of having a heart attack. LIFTING: Avoid lifting anything more than 10 pounds for 5-7 days Prior to straining, laughing, sneezing and/or coughing, apply manual pressure directly over insertion site. ACTIVITY: You may walk or climb stairs as tolerated You can resume sexual activity as tolerated In general, you are encouraged to engage in a minimum of 30 minutes or more of moderate intensity physical activity, such as brisk walking, daily or at least 3 -4 times weekly BATHING Do not submerge the site into water (bath tub, hot tub, swimming pool) for 1 week. This can be a source for infection into the blood stream. You may shower after 24 hours SITE CARE: After 24 hours, you may remove the dressing and leave the site open to air. Keep the site clean and dry. Clean gently and pat dry. You can expect bruising and tenderness that gradually resolve within a week or two. Return to work as instructed per your physician Resume driving as instructed per physician Keep all scheduled follow up appointments Resume medications as instructed IMPORTANT: If prescribed a Platelet Aggregation Inhibitor such as, Plavix, Brilinta or Effient: Duration of therapy is minimum one year These medications are often used in combination with Aspirin in prevention of future heart attacks Never discontinue unless consult with your Special Officer [employer]omat STROKE (CVA) Risk factors for a stroke are: Age, cigarette smoking, diabetes, excessive alcohol consumption, family history, high blood pressure, overweight, physical inactivity, prior stroke, heart attack, diagnosis of carotid artery stenosis or other artery disease. Warning signs: Sudden numbness or weakness of the face, arm or leg; especially on one side of the body, sudden confusion, trouble speaking or understanding, sudden trouble seeing in one or both eyes, sudden trouble walking, dizziness, loss of balance or coordination, sudden severe headache with no cause. Call 911 or go to the Emergency Room. CONGESTIVE HEART FAILURE: If you have been diagnosed with Congestive Heart Failure (CHF) and your symptoms return, make an appointment with your physician Weigh yourself daily. Notify your physician if you have a weight gain of two or more pounds in one day or five or more pounds in one week. If you experience any difficulty breathing, please call 911 BLEEDING: Although the risk of bleeding is minimal, it can happen. If you have any bleeding from the site, apply firm pressure above the puncture site for 10-15 minutes. If the bleeding does not stop, continue manual pressure and call 911 Contact your physician if: You develop a fever greater than 101 degrees Fahrenheit Your site becomes reddened or has any drainage You have an increase in pain or burning at the site or if a large knot forms at the site. If you experience chest pain, shortness of breath, dizziness, or extreme tiredness, stop the activity and rest. Please notify your physicians office if you experience any of these symptoms and they are not relieved by rest please call 911! - Diet and Activity Activity: increase activity as tolerated (Follow instructions has above. ) Diet: low fat, low cholesterol, low salt diet
[2017-12-08 08:56] VITALS: BP 112/58
[2017-12-08] MEDS ORDERED: Cholecalciferol (D-3) 1,000 UNIT TABLET PO SCH (09:00)
[2017-12-08] MEDS ORDERED: Aspirin 81 MG TAB.CHEW PO SCH (09:00)
--- NOTE | 2017-12-08 17:41 | Electrocardiograph Report ---
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
--- NOTE | 2017-12-08 17:44 | Electrocardiograph Report ---
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
== END 2017-12-08 09:45 | disposition home or self-care (01) | DRG 246 ==
LOC: EMEROOARM 12:57 → ICNU 13:48
PROVIDERS: ADMIT Emergency Medicine; ATTEND Emergency Medicine

== ENCOUNTER 2021-09-29 15:19 | Observation (INO) ==
[2021-09-29] MEDS ORDERED: Iopamidol - 370 500 ML MLS IVP ONE ×2 (15:46→16:02)
[2021-09-29 16:03] LABS: Basophils % 0.2 %; Hematocrit 43.1 % (35.3-44.9); Hemoglobin 14.8 g/dL (11.5-15.4); Immature Granulocytes % 0.6 % (0-4); Lymphocytes % 4.9 %; Mean Corpuscular HGB Conc 34.3 g/dL (31.6-35.5); Mean Corpuscular Volume 87.4 fL (83.0-100.0); Mean Platelet Volume 10.4 fL (9.4-12.4); Monocytes # 1.2 K/mcL (0.0-1.3); Neutrophils # 17.6 K/mcL (1.6-8.9); Platelet Count 216 K/mcL (140-400); Red Blood Count 4.93 M/mcL (3.82-4.97); Red Cell Distribution Width 13.6 % (11.5-14.5); Segmented Neutrophils % 88.3 %; White Blood Count 19.9 K/mcL (4.3-11.1)
[2021-09-29] MEDS ORDERED: Cefepime HCl 1,000 MG in 0.9 % Sodium Chloride 10 ML IVP ONE (16:05)
[2021-09-29 16:10] LABS: INR 1.1; Prothrombin Time 12.6 Seconds (9.4-12.1)
[2021-09-29 16:13] LABS: Activated Partial Thrombo Time 28.4 Seconds (26.0-36.0)
[2021-09-29 16:28] LABS: Alanine Aminotransferase 10 Units/L (7-52); Albumin/Globulin Ratio 1.5 (1.1-2.2); Alkaline Phosphatase 51 Units/L (34-104); Aspartate Amino Transferase 16 Units/L (13-39); BUN/Creatinine Ratio 27 (6-26); Bilirubin,Direct 0.2 mg/dL (0.0-0.2); Bilirubin,Indirect 0.6 mg/dL (0.0-1.0); Bilirubin,Total 0.8 mg/dL (0.3-1.0); Blood Urea Nitrogen 24 mg/dL (8-23); Carbon Dioxide 25 mEq/L (23-29); Chloride 101 mEq/L (98-107); Globulin 2.6 g/dL (2.4-3.5); Glucose 136 mg/dL (70-105); Lipase 20 Units/L (11-82); Osmolality,Calculated 286 (280-300); Potassium 3.6 mEq/L (3.5-5.1); Sodium 135 mEq/L (136-145); Total Protein 6.6 g/dL (6.4-8.9); Troponin I < 0.03 ng/mL (< 0.04); eGFR For African Americans > 60 (> 60); eGFR For Non-African Americans > 60 (> 60)
[2021-09-29] MEDS ORDERED: Morphine Sulfate 2 MG/ML SYRINGE IVP ONE (19:13)
[2021-09-29] MEDS ORDERED: Ketorolac 30 MG/ML VIAL IVP ONE (19:30)
[2021-09-29] MEDS ORDERED: Naloxone 0.4 MG/ML INJ IVP PRN (20:03)
[2021-09-29] MEDS ORDERED: Ondansetron 4 MG/2 ML VIAL IVP PRN (20:03)
[2021-09-29] MEDS ORDERED: Acetaminophen 325 MG TABLET PO PRN (20:03)
[2021-09-29] MEDS ORDERED: Melatonin 3 MG TABLET PO PRN (20:03)
[2021-09-29 20:27] LABS: Magnesium 1.7 mg/dL (1.6-2.6); Phosphorous 3.5 mg/dL (2.7-4.5)
[2021-09-29] MEDS ORDERED: *HR* Dextrose 50 % in Water (Syg) 50 ML SYRINGE IVP PRN (21:21)
[2021-09-29] MEDS ORDERED: Dextrose Gel 15 GM/37.5 ML TUBE PO PRN ×2 (21:21)
[2021-09-29] MEDS ORDERED: D5% in Water 1,000 ML IVC PRN (21:21)
[2021-09-29] MEDS ORDERED: Nitroglycerin 0.4 MG TAB.SUBL SL PRN (22:33)
[2021-09-29] MEDS: 0.9 % Sodium Chloride 1,000 ML IVC SCH (22:33)
[2021-09-29] MEDS: Lactobacillus 1 EACH CAP.SPRINK PO SCH (22:34)
[2021-09-29] MEDS: *HR* Heparin 5,000 UNIT/ML VIAL SQ SCH (22:34)
[2021-09-29] MEDS: predniSONE 20 MG TABLET PO SCH (22:34)
[2021-09-29] MEDS: Nicotine 21 MG PATCH.TD24 TD SCH (22:34)
[2021-09-29] MEDS: Ipratropium/Albuterol Neb 3 ML IH SCH (22:58)
[2021-09-29] MEDS: MetroNIDAZOLE 500 MG/100 ML 500 MG/100 ML BAG IVPB SCH (23:18)
[2021-09-29] MEDS ORDERED: *HR* HYDROcodone/Acet 5/325 mg TABLET PO PRN (23:20)
[2021-09-30] MEDS: Ipratropium/Albuterol Neb 3 ML IH SCH ×3 (03:46→10:56)
[2021-09-30] MEDS: *HR* Heparin 5,000 UNIT/ML VIAL SQ SCH ×3 (04:55→22:37)
[2021-09-30 05:10] LABS: Basophils % 0.2 %; Hematocrit 39.6 % (35.3-44.9); Immature Granulocytes % 2.4 % (0-4); Lymphocytes # 1.2 K/mcL (0.6-4.6); Lymphocytes % 6.3 %; Mean Corpuscular HGB Conc 33.1 g/dL (31.6-35.5); Mean Corpuscular Hemoglobin 29.6 pg (28.0-33.3); Mean Corpuscular Volume 89.4 fL (83.0-100.0); Mean Platelet Volume 10.5 fL (9.4-12.4); Monocytes # 0.7 K/mcL (0.0-1.3); Monocytes % 3.5 %; Neutrophils # 17.3 K/mcL (1.6-8.9); Platelet Count 186 K/mcL (140-400); Red Blood Count 4.43 M/mcL (3.82-4.97); Red Cell Distribution Width 14.1 % (11.5-14.5); Segmented Neutrophils % 87.6 %; White Blood Count 19.7 K/mcL (4.3-11.1)
[2021-09-30 05:12] LABS: Hemoglobin 13.1 g/dL (11.5-15.4)
[2021-09-30 05:14] LABS: INR 1.4; Prothrombin Time 16.1 Seconds (9.4-12.1)
[2021-09-30 05:16] LABS: Activated Partial Thrombo Time 31.3 Seconds (26.0-36.0)
[2021-09-30 05:29] LABS: Alanine Aminotransferase 8 Units/L (7-52); Albumin 3.4 g/dL (3.5-5.7); Albumin/Globulin Ratio 1.3 (1.1-2.2); Alkaline Phosphatase 48 Units/L (34-104); Aspartate Amino Transferase 14 Units/L (13-39); BUN/Creatinine Ratio 31 (6-26); Bilirubin,Total 0.6 mg/dL (0.3-1.0); Blood Urea Nitrogen 25 mg/dL (8-23); Calcium 8.7 mg/dL (8.6-10.3); Carbon Dioxide 24 mEq/L (23-29); Chloride 103 mEq/L (98-107); Globulin 2.6 g/dL (2.4-3.5); Glucose 108 mg/dL (70-105); Magnesium 1.8 mg/dL (1.6-2.6); Osmolality,Calculated 285 (280-300); Phosphorous 3.9 mg/dL (2.7-4.5); Potassium 3.8 mEq/L (3.5-5.1); Sodium 135 mEq/L (136-145); eGFR For African Americans > 60 (> 60); eGFR For Non-African Americans > 60 (> 60)
[2021-09-30] MEDS: MetroNIDAZOLE 500 MG/100 ML 500 MG/100 ML BAG IVPB SCH ×2 (08:45→15:58)
[2021-09-30] MEDS: predniSONE 20 MG TABLET PO SCH (11:00)
[2021-09-30] MEDS: Aspirin Enteric Coated 81 MG Tablet PO SCH (11:00)
[2021-09-30] MEDS: Cholecalciferol (D-3) 1,000 UNIT (25MCG) TABLET PO SCH (11:01)
[2021-09-30] MEDS: Lactobacillus 1 EACH CAP.SPRINK PO SCH ×2 (11:01→22:37)
[2021-09-30] MEDS: cefTRIAXone 2,000 MG in 0.9 % Sodium Chloride 20 ML IVPB SCH (11:13)
[2021-09-30] MEDS ORDERED: 0.9 % Sodium Chloride 1,000 ML IVC ONE (11:43)
[2021-09-30] MEDS: Nicotine 21 MG PATCH.TD24 TD SCH (12:00)
[2021-09-30] MEDS ORDERED: 0.9 % Sodium Chloride 500 ML IV ONE (13:31)
[2021-09-30] MEDS: 0.9 % Sodium Chloride 1,000 ML IVC SCH (14:28)
[2021-09-30] MEDS ORDERED: *HR* Propofol 200 MG/20 ML VIAL IVP ONE (18:03)
[2021-09-30] MEDS ORDERED: Lidocaine -MPF 2% 5 ML VIAL ONE (18:06)
[2021-09-30] MEDS ORDERED: *HR* Rocuronium Bromide 50 MG/5 ML VIAL ONE (18:06)
[2021-09-30] MEDS ORDERED: *HR* HYDROmorphone PF 0.5 MG/0.5 ML SYRINGE IVP PRN ×2 (18:29→19:30)
[2021-09-30] MEDS ORDERED: *HR* FentaNYL (PF) 100 MCG/2 ML VIAL ONE (18:30)
[2021-09-30] MEDS ORDERED: Ondansetron 4 MG/2 ML VIAL ONE (18:30)
[2021-09-30] MEDS ORDERED: Sugammadex Sodium 200 MG/2 ML VIAL IV ONE (19:30)
[2021-09-30] MEDS ORDERED: Ondansetron 4 MG/2 ML VIAL IVP ONE (20:11)
[2021-09-30] MEDS: Ipratropium/Albuterol Neb 3 ML IH PRN (21:06)
[2021-10-01] MEDS: MetroNIDAZOLE 500 MG/100 ML 500 MG/100 ML BAG IVPB SCH ×3 (00:38→16:23)
[2021-10-01] MEDS: *HR* Heparin 5,000 UNIT/ML VIAL SQ SCH ×3 (06:06→20:51)
[2021-10-01] MEDS: Lactobacillus 1 EACH CAP.SPRINK PO SCH ×2 (08:13→20:50)
[2021-10-01] MEDS: Cholecalciferol (D-3) 1,000 UNIT (25MCG) TABLET PO SCH (08:13)
[2021-10-01] MEDS: predniSONE 20 MG TABLET PO SCH (08:13)
[2021-10-01] MEDS: Aspirin Enteric Coated 81 MG Tablet PO SCH (08:13)
[2021-10-01] MEDS: cefTRIAXone 2,000 MG in 0.9 % Sodium Chloride 20 ML IVPB SCH (08:14)
[2021-10-01] MEDS: Nicotine 21 MG PATCH.TD24 TD SCH (08:18)
[2021-10-01 08:36] LABS: Basophils % 0.1 %; Hemoglobin 11.6 g/dL (11.5-15.4); Immature Granulocytes % 1.3 % (0-4); Lymphocytes # 0.9 K/mcL (0.6-4.6); Lymphocytes % 6.8 %; Mean Corpuscular HGB Conc 32.2 g/dL (31.6-35.5); Mean Corpuscular Hemoglobin 29.4 pg (28.0-33.3); Mean Corpuscular Volume 91.1 fL (83.0-100.0); Mean Platelet Volume 10.8 fL (9.4-12.4); Monocytes # 0.7 K/mcL (0.0-1.3); Monocytes % 5.8 %; Neutrophils # 10.9 K/mcL (1.6-8.9); Platelet Count 184 K/mcL (140-400); Red Blood Count 3.95 M/mcL (3.82-4.97); Red Cell Distribution Width 14.6 % (11.5-14.5); White Blood Count 12.7 K/mcL (4.3-11.1)
[2021-10-01 08:52] LABS: BUN/Creatinine Ratio 28 (6-26); Blood Urea Nitrogen 19 mg/dL (8-23); Calcium 8.3 mg/dL (8.6-10.3); Carbon Dioxide 23 mEq/L (23-29); Chloride 109 mEq/L (98-107); Glucose 95 mg/dL (70-105); Osmolality,Calculated 288 (280-300); Potassium 4.1 mEq/L (3.5-5.1); Sodium 138 mEq/L (136-145); eGFR For African Americans > 60 (> 60); eGFR For Non-African Americans > 60 (> 60)
[2021-10-01] MEDS: *HR* OxyCODONE Immed Rel 5 MG TABLET PO PRN (12:16)
[2021-10-02] MEDS: MetroNIDAZOLE 500 MG/100 ML 500 MG/100 ML BAG IVPB SCH ×2 (00:26→07:43)
[2021-10-02] MEDS: *HR* OxyCODONE Immed Rel 5 MG TABLET PO PRN (00:27)
[2021-10-02 04:55] LABS: Basophils % 0.1 %; Hematocrit 34.8 % (35.3-44.9); Immature Granulocytes % 1.4 % (0-4); Lymphocytes # 1.3 K/mcL (0.6-4.6); Lymphocytes % 11.5 %; Mean Corpuscular HGB Conc 31.6 g/dL (31.6-35.5); Mean Corpuscular Hemoglobin 29.3 pg (28.0-33.3); Mean Corpuscular Volume 92.6 fL (83.0-100.0); Mean Platelet Volume 10.8 fL (9.4-12.4); Monocytes # 0.7 K/mcL (0.0-1.3); Monocytes % 6.6 %; Neutrophils # 8.9 K/mcL (1.6-8.9); Platelet Count 178 K/mcL (140-400); Red Blood Count 3.76 M/mcL (3.82-4.97); Red Cell Distribution Width 14.7 % (11.5-14.5); Segmented Neutrophils % 80.4 %; White Blood Count 11.1 K/mcL (4.3-11.1)
[2021-10-02 05:15] LABS: BUN/Creatinine Ratio 28 (6-26); Blood Urea Nitrogen 20 mg/dL (8-23); Carbon Dioxide 29 mEq/L (23-29); Chloride 107 mEq/L (98-107); Glucose 87 mg/dL (70-105); Magnesium 1.9 mg/dL (1.6-2.6); Osmolality,Calculated 290 (280-300); Phosphorous 2.6 mg/dL (2.7-4.5); Potassium 4.1 mEq/L (3.5-5.1); Sodium 139 mEq/L (136-145); eGFR For African Americans > 60 (> 60); eGFR For Non-African Americans > 60 (> 60)
[2021-10-02] MEDS: *HR* Heparin 5,000 UNIT/ML VIAL SQ SCH ×2 (05:57→14:07)
[2021-10-02] MEDS: Cholecalciferol (D-3) 1,000 UNIT (25MCG) TABLET PO SCH (07:41)
[2021-10-02] MEDS: predniSONE 20 MG TABLET PO SCH (07:42)
[2021-10-02] MEDS: Aspirin Enteric Coated 81 MG Tablet PO SCH (07:42)
[2021-10-02] MEDS: Lactobacillus 1 EACH CAP.SPRINK PO SCH (07:43)
[2021-10-02] MEDS: Nicotine 21 MG PATCH.TD24 TD SCH (07:44)
[2021-10-02] MEDS: cefTRIAXone 2,000 MG in 0.9 % Sodium Chloride 20 ML IVPB SCH (07:45)
[2021-10-02] MEDS: Ipratropium/Albuterol Neb 3 ML IH PRN (08:02)
[2021-10-02] MEDS ORDERED: Ezetimibe [Zetia] 10 MG Tablet PO SCH (09:00)
[2021-10-02 11:02] VITALS: BP 121/59; PULSE 73; TEMP 97.7; O2SAT 85
== END 2021-10-02 18:20 | disposition home or self-care (01) ==
LOC: EMEROOARM 15:19 → 3NENU 15:19 → SUATTDRO 20:25 → 3NENU 22:00
PROVIDERS: ADMIT Internal Medicine; ATTEND Student in an Organized Health Care Education/Training Program